=== PATIENT | female | born 1935 | race Caucasian/White ===

== ENCOUNTER → 2018-05-13 | Outpatient (REF) | payer MEDICARE, BC, OTHER | LOC: M LAB REF 16:58 | DX: R30.0 Dysuria (principal) | CPT/HCPCS: 87186 ==

== ENCOUNTER → 2018-08-31 | Outpatient (CLI) | payer MEDICARE, OTHER, BC ==
[~2018-08-31] MED LIST: CRES5TAB PO; DICL100T3 PO; METO1TAB32 PO; NYST1POW9 TOP; PRED5TA PO; VAGI10TA PV
[2018-08-31 17:27] LABS: BASO % 0.1 % (0.0-1.0); EOS # 0.1 10^3/uL (0.0-0.50); EOS % 0.4 % (0.0-3.0); HEMATOCRIT 39.3 % (36.0-47.0); HEMOGLOBIN 12.5 g/dl (12.0-15.5); LYMPH # 1.3 10^3/uL (1.5-4.5); LYMPH % 9.3 % (24.0-44.0); MEAN CORPUSCULAR HEMOGLOBIN 31.1 pg (27.0-33.0); MEAN CORPUSCULAR HGB CONC 31.8 g/dl (32.0-36.5); MEAN CORPUSCULAR VOLUME 97.8 fl (80.0-96.0); MONO # 0.7 10^3/uL (0.0-0.8); MONO % 5.1 % (0.0-5.0); NEUTROPHILS # 11.6 10^3/uL (1.8-7.7); NEUTROPHILS % 84.4 % (36.0-66.0); PLATELET COUNT, AUTOMATED 486 10^3/uL (150-450); RED BLOOD COUNT 4.02 10^6/uL (4.00-5.40); WHITE BLOOD COUNT 13.8 10^3/uL (4.0-10.0)
[2018-08-31 17:31] LABS: BLOOD UREA NITROGEN 23 MG/DL (7-18); CALCIUM LEVEL 9.3 MG/DL (8.8-10.2); CARBON DIOXIDE LEVEL 25 MEQ/L (21-32); CHLORIDE LEVEL 109 MEQ/L (98-107); CREATININE FOR GFR 0.89 MG/DL (0.55-1.30); GLOMERULAR FILTRATION RATE > 60.0 (>32); GLUCOSE, FASTING 115 MG/DL (70-100); POTASSIUM SERUM 4.8 MEQ/L (3.5-5.1); SODIUM LEVEL 143 MEQ/L (136-145)
[2018-08-31 17:32] LABS: ALBUMIN 3.9 GM/DL (3.2-5.2); ALT/SGPT 25 U/L (12-78); BILIRUBIN,TOTAL 0.3 MG/DL (0.2-1.0); IMMUNOGLOBULIN G 736 MG/DL (681-1648); IMMUNOGLOBULIN M 88.8 MG/DL (40-230); TOTAL PROTEIN 7.1 GM/DL (6.4-8.2)
[2018-08-31 19:18] LABS: ERYTHROCYTE SEDIMENTATION RATE 47 mm/hr (0-30)
== END ==
LOC: M WUC 13:29
PROVIDERS: ATTEND Internal Medicine Infectious Disease
DX: A02.9 Salmonella infection, unspecified (principal)
CPT/HCPCS: 36415; 80053; 82784; 85025; 85652; 86140; G0463

== ENCOUNTER → 2018-09-18 | Outpatient (REF) | payer MEDICARE, OTHER ==
[~2018-09-18] MED LIST changes: -DICL100T3 PO; +DICL100T89 PO
[2018-09-18 15:28] LABS: BASO % 0.1 % (0.0-1.0); EOS % 0.3 % (0.0-3.0); HEMATOCRIT 38.4 % (36.0-47.0); HEMOGLOBIN 12.2 g/dl (12.0-15.5); LYMPH # 1.4 10^3/uL (1.5-4.5); LYMPH % 10.4 % (24.0-44.0); MEAN CORPUSCULAR HEMOGLOBIN 30.7 pg (27.0-33.0); MEAN CORPUSCULAR HGB CONC 31.8 g/dl (32.0-36.5); MEAN CORPUSCULAR VOLUME 96.5 fl (80.0-96.0); MONO # 0.7 10^3/uL (0.0-0.8); MONO % 4.9 % (0.0-5.0); NEUTROPHILS # 11.3 10^3/uL (1.8-7.7); PLATELET COUNT, AUTOMATED 503 10^3/uL (150-450); RED BLOOD COUNT 3.98 10^6/uL (4.00-5.40); WHITE BLOOD COUNT 13.4 10^3/uL (4.0-10.0)
[2018-09-18 15:29] LABS: APPEARANCE, URINE CLOUDY (CLEAR); BACTERIA, URINE AUTO 2+ (NEGATIVE); BILIRUBIN, URINE AUTO NEGATIVE (NEGATIVE); BLOOD, URINE BLOOD 3+ (NEGATIVE); COLOR, URINE YELLOW (YELLOW); GLUCOSE, URINE (UA) AUTO NEGATIVE (NEGATIVE); KETONE, URINE AUTO NEGATIVE (NEGATIVE); LEUKOCYTE ESTERASE, URINE AUTO 3+ (NEGATIVE); MUCUS, URINE SMALL (NEGATIVE); NITRITE, URINE AUTO NEGATIVE (NEGATIVE); PROTEIN, URINE AUTO NEGATIVE (NEGATIVE); RBC, URINE AUTO 10 /HPF (0-3); SPECIFIC GRAVITY URINE AUTO 1.009 (1.002-1.035); SQUAMOUS EPITHELIAL CELL UR AU 15 /HPF (0-6); UROBILINOGEN, URINE AUTO 0.2 mg/dL (0.0-2.0); WBC, URINE AUTO 5 /HPF (0-3)
[2018-09-18 15:54] LABS: ALBUMIN 3.8 GM/DL (3.2-5.2); ALT/SGPT 20 U/L (12-78); BILIRUBIN,TOTAL 0.4 MG/DL (0.2-1.0); BLOOD UREA NITROGEN 20 MG/DL (7-18); C REACTIVE PROTEIN QUANTITATIV 0.54 MG/DL (0.00-0.30); CALCIUM LEVEL 9.6 MG/DL (8.8-10.2); CARBON DIOXIDE LEVEL 24 MEQ/L (21-32); CHLORIDE LEVEL 109 MEQ/L (98-107); CREATININE FOR GFR 0.84 MG/DL (0.55-1.30); GLOMERULAR FILTRATION RATE > 60.0 (>32); GLUCOSE, FASTING 106 MG/DL (70-100); SODIUM LEVEL 141 MEQ/L (136-145)
[2018-09-18 16:12] LABS: ERYTHROCYTE SEDIMENTATION RATE 42 mm/hr (0-30)
== END ==
LOC: M SFHCPLAZ 13:58
PROVIDERS: ATTEND Internal Medicine Infectious Disease
DX: N39.0 Urinary tract infection, site not specified (principal); M35.3 Polymyalgia rheumatica; A02.9 Salmonella infection, unspecified
CPT/HCPCS: 36415; 80053; 81001; 85025; 85652; 86140; 87088; 87186; G0463

== ENCOUNTER → 2020-06-03 | Outpatient (CLI) | payer SELFPAY | LOC: M LABSMTC 10:38 | PROVIDERS: ATTEND Pediatrics | DX: Z11.59 Encounter for screening for other viral diseases (principal) ==

== ENCOUNTER → 2020-11-25 | Outpatient (CLI) | payer MEDICARE, OTHER ==
[2020-11-25 17:10] LABS: BASO % 0.3 % (0.0-1.0); EOS % 0.2 % (0.0-3.0); HEMOGLOBIN 11.4 g/dl (12.0-15.5); LYMPH # 1.5 10^3/uL (1.5-5.0); LYMPH % 10.6 % (24.0-44.0); MEAN CORPUSCULAR HEMOGLOBIN 30.6 pg (27.0-33.0); MEAN CORPUSCULAR HGB CONC 30.8 g/dl (32.0-36.5); MEAN CORPUSCULAR VOLUME 99.2 fl (80.0-96.0); MONO # 0.6 10^3/uL (0.0-0.8); MONO % 4.4 % (2.0-8.0); NEUTROPHILS # 11.9 10^3/uL (1.5-8.5); PLATELET COUNT, AUTOMATED 495 10^3/uL (150-450); RED BLOOD COUNT 3.73 10^6/uL (4.00-5.40); WHITE BLOOD COUNT 14.2 10^3/uL (4.0-10.0)
[2020-11-25 17:34] LABS: ALBUMIN 3.8 GM/DL (3.2-5.2); ALT/SGPT 16 U/L (12-78); BILIRUBIN,TOTAL 0.4 MG/DL (0.2-1.0); BLOOD UREA NITROGEN 20 MG/DL (7-18); C REACTIVE PROTEIN QUANTITATIV 0.55 MG/DL (0.00-0.30); CALCIUM LEVEL 9.6 MG/DL (8.8-10.2); CARBON DIOXIDE LEVEL 23 MEQ/L (21-32); CHLORIDE LEVEL 111 MEQ/L (98-107); CREATININE FOR GFR 0.89 MG/DL (0.55-1.30); GLOMERULAR FILTRATION RATE > 60.0 (>32); GLUCOSE, FASTING 114 MG/DL (70-100); POTASSIUM SERUM 4.7 MEQ/L (3.5-5.1); SODIUM LEVEL 141 MEQ/L (136-145)
[2020-11-25 17:45] LABS: ERYTHROCYTE SEDIMENTATION RATE 31 mm/hr (0-30)
== END ==
LOC: M WUC 14:43
PROVIDERS: ATTEND Internal Medicine Rheumatology
DX: M35.3 Polymyalgia rheumatica (principal)

== ENCOUNTER → 2021-02-26 | Outpatient (CLI) | payer MEDICARE, OTHER ==
[2021-02-26 11:43] LABS: BASO % 0.4 % (0.0-1.0); EOS # 0.3 10^3/uL (0.0-0.5); EOS % 3.1 % (0.0-3.0); HEMATOCRIT 36.4 % (36.0-47.0); HEMOGLOBIN 11.6 g/dl (12.0-15.5); LYMPH # 3.4 10^3/uL (1.5-5.0); LYMPH % 31.4 % (24.0-44.0); MEAN CORPUSCULAR HEMOGLOBIN 30.5 pg (27.0-33.0); MEAN CORPUSCULAR HGB CONC 31.9 g/dl (32.0-36.5); MEAN CORPUSCULAR VOLUME 95.8 fl (80.0-96.0); MONO # 1.3 10^3/uL (0.0-0.8); MONO % 11.5 % (2.0-8.0); NEUTROPHILS # 5.8 10^3/uL (1.5-8.5); NEUTROPHILS % 53.1 % (36.0-66.0); PLATELET COUNT, AUTOMATED 442 10^3/uL (150-450); WHITE BLOOD COUNT 10.8 10^3/uL (4.0-10.0)
[2021-02-26 12:08] LABS: ALBUMIN 3.3 GM/DL (3.2-5.2); ALT/SGPT 15 U/L (12-78); BILIRUBIN,TOTAL 0.4 MG/DL (0.2-1.0); BLOOD UREA NITROGEN 23 MG/DL (7-18); C REACTIVE PROTEIN QUANTITATIV 0.56 MG/DL (0.00-0.30); CALCIUM LEVEL 9.1 MG/DL (8.8-10.2); CARBON DIOXIDE LEVEL 26 MEQ/L (21-32); CHLORIDE LEVEL 112 MEQ/L (98-107); CREATININE FOR GFR 1.05 MG/DL (0.55-1.30); GLOMERULAR FILTRATION RATE 53.3 (>32); GLUCOSE, FASTING 83 MG/DL (70-100); POTASSIUM SERUM 4.7 MEQ/L (3.5-5.1); SODIUM LEVEL 142 MEQ/L (136-145); TOTAL PROTEIN 6.5 GM/DL (6.4-8.2)
[2021-02-26 12:39] LABS: ERYTHROCYTE SEDIMENTATION RATE 49 mm/hr (0-30)
[2021-03-03 08:45] LABS: ALBUMIN 3.66 GM/DL (3.29-5.55); ALBUMIN % 56.3 % (55.8-66.1); ALPHA-1-GLOBULIN % 5.8 % (2.9-4.9); ALPHA-1-GLOBULINS 0.38 GM/DL (0.17-0.41); ALPHA-2-GLOBULINS 1.01 GM/DL (0.42-0.99); ALPHA-2-GLOBULINS % 15.5 % (7.1-11.8); BETA-1-GLOBULINS 0.46 GM/DL (0.28-0.60); BETA-2-GLOBULINS 0.36 GM/DL (0.19-0.55); BETA-2-GLOBULINS % 5.5 % (3.2-6.5); GAMMA GLOBULIN % 9.9 % (11.1-18.8); GAMMA GLOBULINS 0.64 GM/DL (0.65-1.58)
== END ==
LOC: M WUC 09:19
PROVIDERS: ATTEND Internal Medicine Rheumatology
DX: M35.3 Polymyalgia rheumatica (principal); R70.0 Elevated erythrocyte sedimentation rate; M25.50 Pain in unspecified joint

== ENCOUNTER 2021-09-02 18:40 | Inpatient (IN) | payer MEDICARE, BC, OTHER ==
[~2021-09-02] VITALS: Ht 152.4 cm; Wt 66.9 kg
[2021-09-02 20:08] LABS: BASO % 0.3 % (0.0-1.0); EOS # 0.1 10^3/uL (0.0-0.5); HEMATOCRIT 26.3 % (36.0-47.0); HEMOGLOBIN 8.5 g/dl (12.0-15.5); LYMPH # 1.2 10^3/uL (1.5-5.0); LYMPH % 10.2 % (24.0-44.0); MEAN CORPUSCULAR HEMOGLOBIN 31.3 pg (27.0-33.0); MEAN CORPUSCULAR HGB CONC 32.3 g/dl (32.0-36.5); MEAN CORPUSCULAR VOLUME 96.7 fl (80.0-96.0); MONO # 1.2 10^3/uL (0.0-0.8); MONO % 9.8 % (2.0-8.0); NEUTROPHILS # 9.2 10^3/uL (1.5-8.5); NEUTROPHILS % 77.7 % (36.0-66.0); PLATELET COUNT, AUTOMATED 390 10^3/uL (150-450); RED BLOOD COUNT 2.72 10^6/uL (4.00-5.40); WHITE BLOOD COUNT 11.9 10^3/uL (4.0-10.0)
[2021-09-02] MEDS ORDERED: PANTOPRAZOLE 40MG VIAL (C9113 PER 1) IV ONE (20:10)
[2021-09-02 20:14] LABS: ALBUMIN 2.3 GM/DL (3.2-5.2); ALT/SGPT 32 U/L (12-78); BILIRUBIN,DIRECT < 0.1 MG/DL (0.0-0.2); BILIRUBIN,TOTAL 0.2 MG/DL (0.2-1.0); BLOOD UREA NITROGEN 12 MG/DL (7-18); CARBON DIOXIDE LEVEL 23 MEQ/L (21-32); CHLORIDE LEVEL 113 MEQ/L (98-107); CREATININE FOR GFR 0.56 MG/DL (0.55-1.30); GLOMERULAR FILTRATION RATE > 60.0 (>32); GLUCOSE, FASTING 113 MG/DL (70-100); LIPASE 130 U/L (73-393); POTASSIUM SERUM 3.3 MEQ/L (3.5-5.1); SODIUM LEVEL 145 MEQ/L (136-145); TOTAL PROTEIN 5.7 GM/DL (6.4-8.2)
[2021-09-02 20:28] LABS: INR 0.95; PROTHROMBIN TIME 13.1 SECONDS (12.7-14.5)
[2021-09-02 20:32] LABS: PARTIAL THROMBOPLASTIN TIME 24.8 SECONDS (25.9-37.0)
[2021-09-02 20:59] LABS: RSV AMPLIFICATION NEGATIVE (NEGATIVE)
[2021-09-02] MEDS ORDERED: NS 1,000 ML IV SCH (22:45)
[2021-09-02 23:37] LABS: HEMATOCRIT 17.8 % (36.0-47.0); HEMOGLOBIN 5.5 g/dl (12.0-15.5)
[2021-09-02 23:48] VITALS: BP 128/78
[2021-09-03] MEDS ORDERED: TOPR25TA PO (00:06)
[2021-09-03] MEDS ORDERED: ENSU1LIQ50 PO (00:06)
[2021-09-03] MEDS ORDERED: MELA3TAB30 PO (00:06)
[2021-09-03] MEDS ORDERED: ACET-907 PO (00:06)
[2021-09-03] MEDS ORDERED: SALI0.6530 (00:06)
[2021-09-03] MEDS ORDERED: ASPI-161 PO (00:06)
[2021-09-03] MEDS ORDERED: MECL-86 PO (00:06)
[2021-09-03] MEDS ORDERED: HYDR-643 PO (00:06)
[2021-09-03] MEDS ORDERED: NASA1SPR (00:06)
[2021-09-03] MEDS ORDERED: ESTR1TAB3 PO (00:06)
[2021-09-03] MEDS ORDERED: VITA500T41 PO (00:06)
[2021-09-03] MEDS ORDERED: MELA1TAB9 PO (00:06)
[2021-09-03] MEDS ORDERED: FERR32TA PO (00:06)
[2021-09-03] MEDS ORDERED: PANT40TA29 PO (00:06)
[2021-09-03] MEDS ORDERED: BUSP5TA PO (00:06)
[2021-09-03] MEDS ORDERED: HOME MED LIST COMPLETE! XX SCH (00:10)
[2021-09-03 00:23] LABS: HEMATOCRIT 26.7 % (36.0-47.0); HEMOGLOBIN 8.8 g/dl (12.0-15.5)
[2021-09-03] MEDS: KCL 10MEQ/100ML SWI (KRUN) 10 MEQ in IV 1 EA IV SCH ×2 (00:37→01:57)
[2021-09-03] MEDS: SUCRALFATE 1 GM TAB PO SCH ×4 (00:55→21:30)
[2021-09-03 06:00] VITALS: BP 127/73
[2021-09-03 06:21] LABS: HEMATOCRIT 24.7 % (36.0-47.0)
[2021-09-03 06:47] LABS: ALBUMIN 2.1 GM/DL (3.2-5.2); ALT/SGPT 28 U/L (12-78); BILIRUBIN,TOTAL 0.3 MG/DL (0.2-1.0); BLOOD UREA NITROGEN 11 MG/DL (7-18); CARBON DIOXIDE LEVEL 24 MEQ/L (21-32); CHLORIDE LEVEL 114 MEQ/L (98-107); GLOMERULAR FILTRATION RATE > 60.0 (>32); GLUCOSE, FASTING 92 MG/DL (70-100); MAGNESIUM LEVEL 1.3 MG/DL (1.8-2.4); POTASSIUM SERUM 3.5 MEQ/L (3.5-5.1); SODIUM LEVEL 144 MEQ/L (136-145); TOTAL PROTEIN 5.5 GM/DL (6.4-8.2)
[2021-09-03] MEDS ORDERED: SODIUM CHLORIDE NASAL 0.65% SPRAY BTL (OCEAN) PRN (08:05)
[2021-09-03] MEDS ORDERED: MECLIZINE 25 MG TABLET PO PRN (08:05)
[2021-09-03] MEDS: busPIRone 5 MG TAB PO SCH ×3 (09:00→20:15)
[2021-09-03] MEDS: PANTOPRAZOLE 40MG VIAL (C9113 PER 1) IV SCH ×2 (09:07→20:15)
[2021-09-03] MEDS: predniSONE 5 MG TAB PO SCH (09:09)
[2021-09-03] MEDS: CYANOCOBALAMIN 500 MCG TAB PO SCH (09:09)
[2021-09-03] MEDS: estradioL 1 MG TAB PO SCH (09:09)
[2021-09-03] MEDS: FERROUS GLUCONATE 324 MG TAB PO SCH (09:09)
[2021-09-03] MEDS: METOPROLOL SUCC *XL* 25MG TAB (TopROL *XL*) PO SCH (09:10)
[2021-09-03 09:27] LABS: ALBUMIN 2.2 GM/DL (3.2-5.2); ALT/SGPT 28 U/L (12-78); BILIRUBIN,TOTAL 0.3 MG/DL (0.2-1.0); BLOOD UREA NITROGEN 10 MG/DL (7-18); CALCIUM LEVEL 9.1 MG/DL (8.8-10.2); CARBON DIOXIDE LEVEL 24 MEQ/L (21-32); CHLORIDE LEVEL 114 MEQ/L (98-107); CREATININE FOR GFR 0.38 MG/DL (0.55-1.30); GLOMERULAR FILTRATION RATE > 60.0 (>32); GLUCOSE, FASTING 88 MG/DL (70-100); POTASSIUM SERUM 3.3 MEQ/L (3.5-5.1); SODIUM LEVEL 143 MEQ/L (136-145); TOTAL PROTEIN 5.9 GM/DL (6.4-8.2)
[2021-09-03 09:29] LABS: PERCENT SATURATION 37.3 % (13.2-45.0)
[2021-09-03] MEDS ORDERED: POTASSIUM CHLORIDE 10MEQ SR TABLET PO ONE (13:20)
[2021-09-03 14:00] VITALS: BP 131/72
[2021-09-03] MEDS: BACTRIM 160MG/800MG DS TAB PO SCH ×2 (14:43→20:15)
[2021-09-03 18:22] LABS: HEMATOCRIT 25.1 % (36.0-47.0); HEMOGLOBIN 8.4 g/dl (12.0-15.5); MEAN CORPUSCULAR HEMOGLOBIN 31.9 pg (27.0-33.0); MEAN CORPUSCULAR HGB CONC 33.5 g/dl (32.0-36.5); MEAN CORPUSCULAR VOLUME 95.4 fl (80.0-96.0); PLATELET COUNT, AUTOMATED 443 10^3/uL (150-450); RED BLOOD COUNT 2.63 10^6/uL (4.00-5.40); WHITE BLOOD COUNT 14.1 10^3/uL (4.0-10.0)
[2021-09-03] MEDS: hydrOXYzine 10 MG TAB PO SCH (20:15)
[2021-09-03] MEDS ORDERED: ROSUVASTATIN 10 MG TAB (CRESTOR) PO SCH (21:00)
[2021-09-03] MEDS: ACETAMINOPHEN TAB 650MG DOSE (2X325MG) PO PRN (21:30)
[2021-09-03 22:00] VITALS: BP 122/74
[2021-09-04 06:00] VITALS: BP 110/61
[2021-09-04] MEDS: SUCRALFATE 1 GM TAB PO SCH ×3 (06:28→22:17)
[2021-09-04 06:32] LABS: HEMOGLOBIN 7.7 g/dl (12.0-15.5); MEAN CORPUSCULAR HEMOGLOBIN 31.3 pg (27.0-33.0); MEAN CORPUSCULAR HGB CONC 32.1 g/dl (32.0-36.5); MEAN CORPUSCULAR VOLUME 97.6 fl (80.0-96.0); PLATELET COUNT, AUTOMATED 413 10^3/uL (150-450); RED BLOOD COUNT 2.46 10^6/uL (4.00-5.40); WHITE BLOOD COUNT 10.5 10^3/uL (4.0-10.0)
[2021-09-04] MEDS: busPIRone 5 MG TAB PO SCH ×3 (09:00→22:17)
[2021-09-04] MEDS: BACTRIM 160MG/800MG DS TAB PO SCH (09:17)
[2021-09-04] MEDS: estradioL 1 MG TAB PO SCH (09:17)
[2021-09-04] MEDS: FERROUS GLUCONATE 324 MG TAB PO SCH (09:17)
[2021-09-04] MEDS: CYANOCOBALAMIN 500 MCG TAB PO SCH (09:18)
[2021-09-04] MEDS: predniSONE 5 MG TAB PO SCH (09:18)
[2021-09-04] MEDS: PANTOPRAZOLE 40MG VIAL (C9113 PER 1) IV SCH ×2 (09:18→22:17)
[2021-09-04] MEDS: METOPROLOL SUCC *XL* 25MG TAB (TopROL *XL*) PO SCH (09:18)
[2021-09-04] MEDS: ACETAMINOPHEN TAB 650MG DOSE (2X325MG) PO PRN ×2 (09:49→22:18)
[2021-09-04 09:51] LABS: ALBUMIN 2.2 GM/DL (3.2-5.2); ALT/SGPT 25 U/L (12-78); BILIRUBIN,TOTAL 0.3 MG/DL (0.2-1.0); BLOOD UREA NITROGEN 6 MG/DL (7-18); CALCIUM LEVEL 9.2 MG/DL (8.8-10.2); CARBON DIOXIDE LEVEL 25 MEQ/L (21-32); CHLORIDE LEVEL 113 MEQ/L (98-107); CREATININE FOR GFR 0.45 MG/DL (0.55-1.30); GLOMERULAR FILTRATION RATE > 60.0 (>32); GLUCOSE, FASTING 81 MG/DL (70-100); POTASSIUM SERUM 4.4 MEQ/L (3.5-5.1); SODIUM LEVEL 144 MEQ/L (136-145); TOTAL PROTEIN 5.3 GM/DL (6.4-8.2)
[2021-09-04] MEDS: NYSTATIN 100,000 UNITS/GM TOPICAL PWD 15 GM TOP SCH ×2 (13:13→22:18)
[2021-09-04 14:00] VITALS: BP 151/79
[2021-09-04 18:37] LABS: HEMATOCRIT 28.1 % (36.0-47.0); MEAN CORPUSCULAR HEMOGLOBIN 31.6 pg (27.0-33.0); MEAN CORPUSCULAR VOLUME 98.6 fl (80.0-96.0); PLATELET COUNT, AUTOMATED 486 10^3/uL (150-450); RED BLOOD COUNT 2.85 10^6/uL (4.00-5.40); WHITE BLOOD COUNT 14.6 10^3/uL (4.0-10.0)
[2021-09-04] MEDS ORDERED: VANCOMYCIN HCL 750 MG, VIAL MATE ADAPTER 1 EACH in NS 250 ML IV ONE (20:00)
[2021-09-04] MEDS ORDERED: PROHANCE 279.3MG/ML 15ML VIAL As Ordered ONE (20:51)
[2021-09-04] MEDS ORDERED: VANCOMYCIN HCL 500 MG in D5W MINI-BAG PLUS 100 ML IV ONE (21:00)
[2021-09-04 22:00] VITALS: BP 146/81
[2021-09-04] MEDS: hydrOXYzine 10 MG TAB PO SCH (22:17)
[2021-09-05] MEDS: CIPROFLOXACIN 400 MG in IV 1 EA IV SCH ×3 (01:17→22:05)
[2021-09-05] MEDS: SUCRALFATE 1 GM TAB PO SCH ×3 (05:33→22:05)
[2021-09-05 06:00] VITALS: BP 134/64
[2021-09-05 07:12] LABS: HEMATOCRIT 24.6 % (36.0-47.0); MEAN CORPUSCULAR HEMOGLOBIN 31.7 pg (27.0-33.0); MEAN CORPUSCULAR HGB CONC 32.5 g/dl (32.0-36.5); MEAN CORPUSCULAR VOLUME 97.6 fl (80.0-96.0); PLATELET COUNT, AUTOMATED 422 10^3/uL (150-450); RED BLOOD COUNT 2.52 10^6/uL (4.00-5.40); WHITE BLOOD COUNT 9.6 10^3/uL (4.0-10.0)
[2021-09-05 07:33] LABS: ALBUMIN 2.3 GM/DL (3.2-5.2); ALT/SGPT 27 U/L (12-78); BILIRUBIN,TOTAL 0.3 MG/DL (0.2-1.0); BLOOD UREA NITROGEN 5 MG/DL (7-18); CALCIUM LEVEL 9.2 MG/DL (8.8-10.2); CARBON DIOXIDE LEVEL 26 MEQ/L (21-32); CHLORIDE LEVEL 109 MEQ/L (98-107); GLOMERULAR FILTRATION RATE > 60.0 (>32); GLUCOSE, FASTING 83 MG/DL (70-100); POTASSIUM SERUM 4.2 MEQ/L (3.5-5.1); SODIUM LEVEL 139 MEQ/L (136-145); TOTAL PROTEIN 5.3 GM/DL (6.4-8.2)
[2021-09-05] MEDS: busPIRone 5 MG TAB PO SCH ×3 (09:00→21:10)
[2021-09-05 09:45] VITALS: BP 128/64
[2021-09-05] MEDS: predniSONE 5 MG TAB PO SCH (09:45)
[2021-09-05] MEDS: CYANOCOBALAMIN 500 MCG TAB PO SCH (09:45)
[2021-09-05] MEDS: PANTOPRAZOLE 40MG VIAL (C9113 PER 1) IV SCH ×2 (09:46→21:10)
[2021-09-05] MEDS: LACTOBACILLUS ACIDOPHILUS CAP (BACID) PO SCH ×2 (09:46→18:18)
[2021-09-05] MEDS: FERROUS GLUCONATE 324 MG TAB PO SCH (09:46)
[2021-09-05] MEDS: estradioL 1 MG TAB PO SCH (09:46)
[2021-09-05] MEDS: METOPROLOL SUCC *XL* 25MG TAB (TopROL *XL*) PO SCH (09:46)
[2021-09-05] MEDS: VANCOMYCIN HCL 1,000 MG, VIAL MATE ADAPTER 1 EACH in NS 250 ML IV SCH ×2 (09:46→19:33)
[2021-09-05] MEDS: NYSTATIN 100,000 UNITS/GM TOPICAL PWD 15 GM TOP SCH ×2 (09:57→21:11)
[2021-09-05 14:00] VITALS: BP 128/86
[2021-09-05 21:00] VITALS: BP 129/80
[2021-09-05] MEDS: hydrOXYzine 10 MG TAB PO SCH (21:10)
[2021-09-05] MEDS: ACETAMINOPHEN TAB 650MG DOSE (2X325MG) PO PRN (22:07)
[2021-09-06 06:00] VITALS: BP 128/77
[2021-09-06 06:33] LABS: HEMATOCRIT 27.2 % (36.0-47.0); HEMOGLOBIN 8.6 g/dl (12.0-15.5); MEAN CORPUSCULAR HGB CONC 31.6 g/dl (32.0-36.5); MEAN CORPUSCULAR VOLUME 98.2 fl (80.0-96.0); PLATELET COUNT, AUTOMATED 490 10^3/uL (150-450); RED BLOOD COUNT 2.77 10^6/uL (4.00-5.40); WHITE BLOOD COUNT 10.4 10^3/uL (4.0-10.0)
[2021-09-06] MEDS: SUCRALFATE 1 GM TAB PO SCH (06:37)
[2021-09-06 07:03] LABS: ALBUMIN 2.4 GM/DL (3.2-5.2); ALT/SGPT 29 U/L (12-78); BILIRUBIN,TOTAL 0.3 MG/DL (0.2-1.0); BLOOD UREA NITROGEN 6 MG/DL (7-18); CALCIUM LEVEL 9.2 MG/DL (8.8-10.2); CARBON DIOXIDE LEVEL 24 MEQ/L (21-32); CHLORIDE LEVEL 111 MEQ/L (98-107); CREATININE FOR GFR 0.63 MG/DL (0.55-1.30); GLOMERULAR FILTRATION RATE > 60.0 (>32); GLUCOSE, FASTING 90 MG/DL (70-100); POTASSIUM SERUM 3.6 MEQ/L (3.5-5.1); SODIUM LEVEL 143 MEQ/L (136-145); TOTAL PROTEIN 6.2 GM/DL (6.4-8.2)
[2021-09-06] MEDS ORDERED: FUROSEMIDE 40MG/4ML VIAL (J1940) IV ONE (07:50)
[2021-09-06] MEDS ORDERED: VANCOMYCIN HCL 750 MG, VIAL MATE ADAPTER 1 EACH in NS 250 ML IV SCH (08:00)
[2021-09-06 08:23] LABS: C REACTIVE PROTEIN QUANTITATIV 3.63 MG/DL (0.00-0.30)
[2021-09-06 08:33] LABS: ERYTHROCYTE SEDIMENTATION RATE 60 mm/hr (0-30)
[2021-09-06] MEDS: predniSONE 5 MG TAB PO SCH (09:32)
[2021-09-06] MEDS: LACTOBACILLUS ACIDOPHILUS CAP (BACID) PO SCH (09:32)
[2021-09-06] MEDS: PANTOPRAZOLE 40MG VIAL (C9113 PER 1) IV SCH (09:32)
[2021-09-06 09:33] VITALS: BP 128/77
[2021-09-06] MEDS: FERROUS GLUCONATE 324 MG TAB PO SCH (09:33)
[2021-09-06] MEDS: CYANOCOBALAMIN 500 MCG TAB PO SCH (09:33)
[2021-09-06] MEDS: METOPROLOL SUCC *XL* 25MG TAB (TopROL *XL*) PO SCH (09:33)
[2021-09-06] MEDS: busPIRone 5 MG TAB PO SCH (09:35)
[2021-09-06] MEDS: estradioL 1 MG TAB PO SCH (09:35)
[2021-09-06] MEDS: NYSTATIN 100,000 UNITS/GM TOPICAL PWD 15 GM TOP SCH (09:36)
[2021-09-06] MEDS: CIPROFLOXACIN 400 MG in IV 1 EA IV SCH (11:10)
[2021-09-06] MEDS ORDERED: CIPR1.5I IV (12:23)
[2021-09-06] MEDS ORDERED: RISATAB3 PO (12:23)
[2021-09-06] MEDS ORDERED: PANT40IN4 IV (12:23)
[2021-09-06] MEDS ORDERED: SUCR1TA PO (12:23)
[2021-09-06] MEDS ORDERED: NYST10006 TOP (12:23)
[2021-09-06] MEDS ORDERED: VANC750I IV (12:23)
[2021-09-06] MEDS: ACETAMINOPHEN TAB 650MG DOSE (2X325MG) PO PRN (13:00)
== END 2021-09-06 13:25 | disposition short-term general hospital (02) | DRG 377 ==
LOC: EDBD 18:40 → M ED 18:40 → M ED INP 21:52 → M MSPAV 23:50
PROVIDERS: ADMIT Family Medicine; ATTEND Internal Medicine
DX: K57.21 Diverticulitis of large intestine with perforation and abscess with bleeding (principal); A41.9 Sepsis, unspecified organism; G06.2 Extradural and subdural abscess, unspecified; N39.0 Urinary tract infection, site not specified; J90 Pleural effusion, not elsewhere classified; M86.9 Osteomyelitis, unspecified; I10 Essential (primary) hypertension; M35.3 Polymyalgia rheumatica; M19.90 Unspecified osteoarthritis, unspecified site; R09.02 Hypoxemia; D50.9 Iron deficiency anemia, unspecified; B37.2 Candidiasis of skin and nail; Z66 Do not resuscitate; E78.5 Hyperlipidemia, unspecified; M48.061 Spinal stenosis, lumbar region without neurogenic claudication; N89.8 Other specified noninflammatory disorders of vagina; M46.47 Discitis, unspecified, lumbosacral region; Z85.3 Personal history of malignant neoplasm of breast; Z93.3 Colostomy status; Z96.653 Presence of artificial knee joint, bilateral; Z90.13 Acquired absence of bilateral breasts and nipples; Z90.710 Acquired absence of both cervix and uterus; Z98.49 Cataract extraction status, unspecified eye; Z20.822 Contact with and (suspected) exposure to COVID-19; Z79.52 Long term (current) use of systemic steroids; Z79.899 Other long term (current) drug therapy; Z88.1 Allergy status to other antibiotic agents; Z88.5 Allergy status to narcotic agent; Z88.8 Allergy status to other drugs, medicaments and biological substances

== ENCOUNTER → 2021-09-21 | Outpatient (REF) | payer BC, MEDICARE, OTHER ==
[~2021-09-21] MED LIST changes: +ACET-907 PO; +ASPI-161 PO; +BUSP5TA PO; +CIPR1.5I IV; +ENSU1LIQ50 PO; +ESTR1TAB3 PO; +FERR32TA PO; +HYDR-643 PO; +MECL-86 PO; +MELA1TAB9 PO; +MELA3TAB30 PO; +NASA1SPR; +NYST10006 TOP; +PANT40IN4 IV; +PANT40TA29 PO; +RISATAB3 PO; +SALI0.6530; +SUCR1TA PO; +TOPR25TA PO; +VANC750I IV; +VITA500T41 PO
[2021-09-21 13:06] LABS: HEMATOCRIT 31.9 % (36.0-47.0); MEAN CORPUSCULAR HEMOGLOBIN 30.6 pg (27.0-33.0); MEAN CORPUSCULAR HGB CONC 31.3 g/dl (32.0-36.5); MEAN CORPUSCULAR VOLUME 97.6 fl (80.0-96.0); PLATELET COUNT, AUTOMATED 526 10^3/uL (150-450); RED BLOOD COUNT 3.27 10^6/uL (4.00-5.40); WHITE BLOOD COUNT 14.8 10^3/uL (4.0-10.0)
[2021-09-21 13:32] LABS: BLOOD UREA NITROGEN 15 MG/DL (7-18); C REACTIVE PROTEIN QUANTITATIV 3.15 MG/DL (0.00-0.30); CALCIUM LEVEL 10.4 MG/DL (8.8-10.2); CARBON DIOXIDE LEVEL 20 MEQ/L (21-32); CHLORIDE LEVEL 114 MEQ/L (98-107); CREATININE FOR GFR 0.54 MG/DL (0.55-1.30); GLOMERULAR FILTRATION RATE > 60.0 (>32); GLUCOSE, FASTING 105 MG/DL (70-100); POTASSIUM SERUM 3.7 MEQ/L (3.5-5.1); SODIUM LEVEL 143 MEQ/L (136-145)
[2021-09-21 13:47] LABS: ERYTHROCYTE SEDIMENTATION RATE 85 mm/hr (0-30)
[2021-09-21 14:49] LABS: VANCOMYCIN LEVEL TROUGH 27.2 UG/ML (10.0-20.0)
== END ==
PROVIDERS: ATTEND Internal Medicine
DX: M46.40 Discitis, unspecified, site unspecified (principal)

== ENCOUNTER → 2021-10-05 | Outpatient (REF) | PROVIDERS: ATTEND Physician Assistant | DX: A41.9 Sepsis, unspecified organism (principal); Z53.9 Procedure and treatment not carried out, unspecified reason ==

== ENCOUNTER → 2021-10-07 | Outpatient (REF) | PROVIDERS: ATTEND Physician Assistant | DX: Z51.81 Encounter for therapeutic drug level monitoring (principal); Z79.2 Long term (current) use of antibiotics ==

== ENCOUNTER → 2021-10-11 | Outpatient (REF) | PROVIDERS: ATTEND Physician Assistant | DX: Z79.899 Other long term (current) drug therapy (principal); Z53.9 Procedure and treatment not carried out, unspecified reason ==

== ENCOUNTER → 2021-10-12 | Outpatient (REF) ==
[2021-10-12 13:52] LABS: HEMATOCRIT 32.9 % (36.0-47.0); HEMOGLOBIN 10.8 g/dl (12.0-15.5); MEAN CORPUSCULAR HEMOGLOBIN 32.3 pg (27.0-33.0); MEAN CORPUSCULAR HGB CONC 32.8 g/dl (32.0-36.5); MEAN CORPUSCULAR VOLUME 98.5 fl (80.0-96.0); PLATELET COUNT, AUTOMATED 525 10^3/uL (150-450); RED BLOOD COUNT 3.34 10^6/uL (4.00-5.40); WHITE BLOOD COUNT 15.7 10^3/uL (4.0-10.0)
[2021-10-12 14:26] LABS: ALBUMIN 3.1 GM/DL (3.2-5.2); ALT/SGPT 26 U/L (12-78); BILIRUBIN,TOTAL 0.3 MG/DL (0.2-1.0); BLOOD UREA NITROGEN 14 MG/DL (7-18); CALCIUM LEVEL 10.9 MG/DL (8.8-10.2); CARBON DIOXIDE LEVEL 13 MEQ/L (21-32); CHLORIDE LEVEL 115 MEQ/L (98-107); GLOMERULAR FILTRATION RATE > 60.0 (>32); GLUCOSE, FASTING 132 MG/DL (70-100); POTASSIUM SERUM 4.5 MEQ/L (3.5-5.1); SODIUM LEVEL 142 MEQ/L (136-145); TOTAL PROTEIN 7.1 GM/DL (6.4-8.2)
== END ==
PROVIDERS: ATTEND Physician Assistant
DX: Z79.899 Other long term (current) drug therapy (principal)

== ENCOUNTER → 2021-10-15 | Outpatient (REF) | PROVIDERS: ATTEND Internal Medicine | DX: M46.40 Discitis, unspecified, site unspecified (principal); Z53.9 Procedure and treatment not carried out, unspecified reason ==

== ENCOUNTER → 2021-10-15 | Outpatient (REF) | PROVIDERS: ATTEND Physician Assistant | DX: Z79.2 Long term (current) use of antibiotics (principal); M46.40 Discitis, unspecified, site unspecified; Z53.9 Procedure and treatment not carried out, unspecified reason ==

== ENCOUNTER → 2021-10-15 | Outpatient (REF) | PROVIDERS: ATTEND Internal Medicine | DX: M46.40 Discitis, unspecified, site unspecified (principal); Z53.9 Procedure and treatment not carried out, unspecified reason ==

== ENCOUNTER → 2021-10-15 | Outpatient (REF) | PROVIDERS: ATTEND Internal Medicine | DX: M46.40 Discitis, unspecified, site unspecified (principal) ==

== ENCOUNTER → 2021-10-16 | Outpatient (REF) ==
[2021-10-16 10:51] LABS: BASO # 0.1 10^3/uL (0.0-0.2); BASO % 0.5 % (0.0-1.0); EOS # 0.8 10^3/uL (0.0-0.5); EOS % 6.9 % (0.0-3.0); HEMATOCRIT 32.5 % (36.0-47.0); HEMOGLOBIN 10.1 g/dl (12.0-15.5); LYMPH # 1.6 10^3/uL (1.5-5.0); LYMPH % 13.2 % (24.0-44.0); MEAN CORPUSCULAR HEMOGLOBIN 31.7 pg (27.0-33.0); MEAN CORPUSCULAR HGB CONC 31.1 g/dl (32.0-36.5); MEAN CORPUSCULAR VOLUME 101.9 fl (80.0-96.0); MONO # 1.1 10^3/uL (0.0-0.8); NEUTROPHILS # 8.5 10^3/uL (1.5-8.5); NEUTROPHILS % 69.7 % (36.0-66.0); PLATELET COUNT, AUTOMATED 444 10^3/uL (150-450); RED BLOOD COUNT 3.19 10^6/uL (4.00-5.40); WHITE BLOOD COUNT 12.2 10^3/uL (4.0-10.0)
[2021-10-16 11:25] LABS: ALBUMIN 2.9 GM/DL (3.2-5.2); ALT/SGPT 24 U/L (12-78); BILIRUBIN,TOTAL 0.3 MG/DL (0.2-1.0); BLOOD UREA NITROGEN 17 MG/DL (7-18); C REACTIVE PROTEIN QUANTITATIV 0.79 MG/DL (0.00-0.30); CALCIUM LEVEL 10.7 MG/DL (8.8-10.2); CARBON DIOXIDE LEVEL 18 MEQ/L (21-32); CHLORIDE LEVEL 116 MEQ/L (98-107); CREATININE FOR GFR 0.71 MG/DL (0.55-1.30); GLOMERULAR FILTRATION RATE > 60.0 (>32); GLUCOSE, FASTING 112 MG/DL (70-100); POTASSIUM SERUM 4.8 MEQ/L (3.5-5.1); SODIUM LEVEL 141 MEQ/L (136-145); TOTAL PROTEIN 6.6 GM/DL (6.4-8.2); VANCOMYCIN LEVEL TROUGH 21.7 UG/ML (10.0-20.0)
== END ==
PROVIDERS: ATTEND Internal Medicine
DX: M46.40 Discitis, unspecified, site unspecified (principal); Z79.2 Long term (current) use of antibiotics

== ENCOUNTER → 2021-10-19 | Outpatient (REF) | PROVIDERS: ATTEND Internal Medicine | DX: M46.40 Discitis, unspecified, site unspecified (principal) ==

== ENCOUNTER → 2021-10-19 | Outpatient (REF) ==
[2021-10-19 14:59] LABS: BASO # 0.1 10^3/uL (0.0-0.2); BASO % 0.4 % (0.0-1.0); EOS # 0.8 10^3/uL (0.0-0.5); EOS % 5.4 % (0.0-3.0); HEMOGLOBIN 10.1 g/dl (12.0-15.5); LYMPH # 1.3 10^3/uL (1.5-5.0); LYMPH % 8.2 % (24.0-44.0); MEAN CORPUSCULAR HEMOGLOBIN 31.9 pg (27.0-33.0); MEAN CORPUSCULAR HGB CONC 31.6 g/dl (32.0-36.5); MEAN CORPUSCULAR VOLUME 100.9 fl (80.0-96.0); MONO # 1.4 10^3/uL (0.0-0.8); MONO % 9.2 % (2.0-8.0); NEUTROPHILS % 76.2 % (36.0-66.0); PLATELET COUNT, AUTOMATED 436 10^3/uL (150-450); RED BLOOD COUNT 3.17 10^6/uL (4.00-5.40); WHITE BLOOD COUNT 15.7 10^3/uL (4.0-10.0)
[2021-10-19 15:17] LABS: ERYTHROCYTE SEDIMENTATION RATE 52 mm/hr (0-30)
[2021-10-19 15:24] LABS: BLOOD UREA NITROGEN 18 MG/DL (7-18); C REACTIVE PROTEIN QUANTITATIV 1.76 MG/DL (0.00-0.30); CALCIUM LEVEL 11.5 MG/DL (8.8-10.2); CARBON DIOXIDE LEVEL 16 MEQ/L (21-32); CHLORIDE LEVEL 116 MEQ/L (98-107); CREATININE FOR GFR 0.67 MG/DL (0.55-1.30); GLOMERULAR FILTRATION RATE > 60.0 (>32); GLUCOSE, FASTING 106 MG/DL (70-100); POTASSIUM SERUM 4.3 MEQ/L (3.5-5.1); SODIUM LEVEL 142 MEQ/L (136-145)
== END ==
PROVIDERS: ATTEND Internal Medicine
DX: M46.40 Discitis, unspecified, site unspecified (principal)

== ENCOUNTER → 2021-10-19 | Outpatient (REF) | PROVIDERS: ATTEND Physician Assistant | DX: Z53.8 Procedure and treatment not carried out for other reasons (principal) ==

== ENCOUNTER → 2021-10-21 | Outpatient (REF) | PROVIDERS: ATTEND Physician Assistant | DX: M46.40 Discitis, unspecified, site unspecified (principal) ==

== ENCOUNTER → 2021-10-21 | Outpatient (REF) | PROVIDERS: ATTEND Internal Medicine | DX: M46.40 Discitis, unspecified, site unspecified (principal) ==

== ENCOUNTER → 2021-10-22 | Outpatient (REF) ==
[2021-10-22 18:52] LABS: BLOOD UREA NITROGEN 17 MG/DL (7-18); CALCIUM LEVEL 10.6 MG/DL (8.8-10.2); CARBON DIOXIDE LEVEL 16 MEQ/L (21-32); CHLORIDE LEVEL 114 MEQ/L (98-107); CREATININE FOR GFR 0.84 MG/DL (0.55-1.30); GLOMERULAR FILTRATION RATE > 60.0 (>32); GLUCOSE, FASTING 95 MG/DL (70-100); POTASSIUM SERUM 4.5 MEQ/L (3.5-5.1); SODIUM LEVEL 143 MEQ/L (136-145)
== END ==
PROVIDERS: ATTEND Physician Assistant
DX: E87.5 Hyperkalemia (principal)

== ENCOUNTER → 2021-10-22 | Outpatient (REF) | PROVIDERS: ATTEND Internal Medicine | DX: M46.40 Discitis, unspecified, site unspecified (principal) ==

== ENCOUNTER → 2021-10-23 | Outpatient (REF) ==
[2021-10-23 14:20] LABS: BLOOD UREA NITROGEN 19 MG/DL (7-18); CALCIUM LEVEL 11.1 MG/DL (8.8-10.2); CARBON DIOXIDE LEVEL 16 MEQ/L (21-32); CHLORIDE LEVEL 119 MEQ/L (98-107); CREATININE FOR GFR 0.74 MG/DL (0.55-1.30); GLOMERULAR FILTRATION RATE > 60.0 (>32); GLUCOSE, FASTING 106 MG/DL (70-100); PHOSPHORUS LEVEL 3.7 MG/DL (2.5-4.9); POTASSIUM SERUM 4.7 MEQ/L (3.5-5.1); SODIUM LEVEL 143 MEQ/L (136-145)
== END ==
PROVIDERS: ATTEND Physician Assistant
DX: Z51.81 Encounter for therapeutic drug level monitoring (principal); Z79.899 Other long term (current) drug therapy

== ENCOUNTER → 2021-10-23 | Outpatient (REF) ==
[2021-10-23 13:32] LABS: HEMATOCRIT 32.2 % (36.0-47.0); HEMOGLOBIN 9.9 g/dl (12.0-15.5); MEAN CORPUSCULAR HEMOGLOBIN 31.5 pg (27.0-33.0); MEAN CORPUSCULAR HGB CONC 30.7 g/dl (32.0-36.5); MEAN CORPUSCULAR VOLUME 102.5 fl (80.0-96.0); PLATELET COUNT, AUTOMATED 463 10^3/uL (150-450); RED BLOOD COUNT 3.14 10^6/uL (4.00-5.40); WHITE BLOOD COUNT 12.8 10^3/uL (4.0-10.0)
[2021-10-23 13:58] LABS: BLOOD UREA NITROGEN 20 MG/DL (7-18); CALCIUM LEVEL 11.1 MG/DL (8.8-10.2); CARBON DIOXIDE LEVEL 15 MEQ/L (21-32); CHLORIDE LEVEL 119 MEQ/L (98-107); CREATININE FOR GFR 0.78 MG/DL (0.55-1.30); GLOMERULAR FILTRATION RATE > 60.0 (>32); GLUCOSE, FASTING 113 MG/DL (70-100); POTASSIUM SERUM 4.8 MEQ/L (3.5-5.1); SODIUM LEVEL 145 MEQ/L (136-145); TOTAL PROTEIN 6.4 GM/DL (6.4-8.2)
[2021-10-27 14:52] LABS: ALBUMIN 3.75 GM/DL (3.29-5.55); ALBUMIN % 58.6 % (55.8-66.1); ALPHA-1-GLOBULIN % 5.4 % (2.9-4.9); ALPHA-1-GLOBULINS 0.35 GM/DL (0.17-0.41); ALPHA-2-GLOBULINS 0.95 GM/DL (0.42-0.99); ALPHA-2-GLOBULINS % 14.9 % (7.1-11.8); BETA-1-GLOBULINS 0.31 GM/DL (0.28-0.60); BETA-1-GLOBULINS % 4.9 % (4.7-7.2); BETA-2-GLOBULINS % 6.2 % (3.2-6.5); GAMMA GLOBULINS 0.64 GM/DL (0.65-1.58)
== END ==
PROVIDERS: ATTEND Internal Medicine
DX: M46.40 Discitis, unspecified, site unspecified (principal)

== ENCOUNTER → 2021-10-26 | Outpatient (CLI) | payer MEDICARE, BC, OTHER ==
[~2021-10-26] MED LIST changes: +PROHANCE 279.3MG/ML 15ML VIAL As Ordered ONE
== END ==
LOC: M RAD 10:43
PROVIDERS: ATTEND Physician Assistant
DX: M46.40 Discitis, unspecified, site unspecified (principal)
CPT/HCPCS: 72158; 74183; A9576

== ENCOUNTER → 2021-10-27 | Outpatient (REF) ==
[~2021-10-27] MED LIST changes: -PROHANCE 279.3MG/ML 15ML VIAL As Ordered ONE
[2021-10-27 16:04] LABS: C REACTIVE PROTEIN QUANTITATIV 0.81 MG/DL (0.00-0.30); CALCIUM LEVEL 10.1 MG/DL (8.8-10.2); CREATININE FOR GFR 0.96 MG/DL (0.55-1.30); GLOMERULAR FILTRATION RATE 58.9 (>32)
== END ==
PROVIDERS: ATTEND Internal Medicine
DX: M46.49 Discitis, unspecified, multiple sites in spine (principal)

== ENCOUNTER → 2021-10-28 | Outpatient (REF) ==
[2021-10-28 13:03] LABS: BASO # 0.1 10^3/uL (0.0-0.2); BASO % 0.4 % (0.0-1.0); EOS # 0.6 10^3/uL (0.0-0.5); HEMATOCRIT 31.1 % (36.0-47.0); HEMOGLOBIN 9.8 g/dl (12.0-15.5); LYMPH # 1.2 10^3/uL (1.5-5.0); MEAN CORPUSCULAR HEMOGLOBIN 31.5 pg (27.0-33.0); MEAN CORPUSCULAR HGB CONC 31.5 g/dl (32.0-36.5); MONO # 1.5 10^3/uL (0.0-0.8); MONO % 12.5 % (2.0-8.0); NEUTROPHILS # 8.6 10^3/uL (1.5-8.5); NEUTROPHILS % 71.3 % (36.0-66.0); PLATELET COUNT, AUTOMATED 447 10^3/uL (150-450); RED BLOOD COUNT 3.11 10^6/uL (4.00-5.40); WHITE BLOOD COUNT 12.1 10^3/uL (4.0-10.0)
[2021-10-28 13:36] LABS: ALT/SGPT 16 U/L (12-78); BILIRUBIN,TOTAL 0.2 MG/DL (0.2-1.0); BLOOD UREA NITROGEN 26 MG/DL (7-18); C REACTIVE PROTEIN QUANTITATIV 0.78 MG/DL (0.00-0.30); CALCIUM LEVEL 11.3 MG/DL (8.8-10.2); CARBON DIOXIDE LEVEL 15 MEQ/L (21-32); CHLORIDE LEVEL 117 MEQ/L (98-107); CREATININE FOR GFR 0.92 MG/DL (0.55-1.30); GLOMERULAR FILTRATION RATE > 60.0 (>32); GLUCOSE, FASTING 87 MG/DL (70-100); POTASSIUM SERUM 4.8 MEQ/L (3.5-5.1); SODIUM LEVEL 143 MEQ/L (136-145); TOTAL PROTEIN 6.4 GM/DL (6.4-8.2)
[2021-10-28 14:44] LABS: ERYTHROCYTE SEDIMENTATION RATE 50 mm/hr (0-30)
== END ==
PROVIDERS: ATTEND Internal Medicine
DX: M46.40 Discitis, unspecified, site unspecified (principal)

== ENCOUNTER → 2021-10-28 | Outpatient (REF) | payer MEDICARE, BC, OTHER | LOC: M LAB REF 13:24 | PROVIDERS: ATTEND Internal Medicine Infectious Disease | DX: K86.89 Other specified diseases of pancreas (principal); D37.8 Neoplasm of uncertain behavior of other specified digestive organs ==

== ENCOUNTER → 2021-11-11 | Outpatient (REF) ==
[2021-11-11 12:38] LABS: BASO % 0.3 % (0.0-1.0); EOS # 0.1 10^3/uL (0.0-0.5); EOS % 0.8 % (0.0-3.0); LYMPH % 7.4 % (24.0-44.0); MEAN CORPUSCULAR HEMOGLOBIN 30.6 pg (27.0-33.0); MEAN CORPUSCULAR HGB CONC 31.3 g/dl (32.0-36.5); MEAN CORPUSCULAR VOLUME 97.9 fl (80.0-96.0); MONO # 0.8 10^3/uL (0.0-0.8); MONO % 5.8 % (2.0-8.0); NEUTROPHILS # 11.2 10^3/uL (1.5-8.5); NEUTROPHILS % 84.6 % (36.0-66.0); PLATELET COUNT, AUTOMATED 444 10^3/uL (150-450); RED BLOOD COUNT 3.27 10^6/uL (4.00-5.40); WHITE BLOOD COUNT 13.3 10^3/uL (4.0-10.0)
[2021-11-11 13:06] LABS: ALBUMIN 3.4 GM/DL (3.2-5.2); BILIRUBIN,TOTAL 0.3 MG/DL (0.2-1.0); C REACTIVE PROTEIN QUANTITATIV 0.78 MG/DL (0.00-0.30); CALCIUM LEVEL 9.6 MG/DL (8.8-10.2); CREATININE FOR GFR 1.32 MG/DL (0.55-1.30); GLOMERULAR FILTRATION RATE 40.8 (>32); TOTAL PROTEIN 6.8 GM/DL (6.4-8.2)
[2021-11-11 13:18] LABS: ERYTHROCYTE SEDIMENTATION RATE 56 mm/hr (0-30)
== END ==
PROVIDERS: ATTEND Physician Assistant
DX: M46.40 Discitis, unspecified, site unspecified (principal)

== ENCOUNTER → 2021-11-18 | Outpatient (REF) | PROVIDERS: ATTEND Physician Assistant | DX: N89.8 Other specified noninflammatory disorders of vagina (principal) ==

== ENCOUNTER → 2021-11-20 | Outpatient (CLI) | payer MEDICARE, BC, OTHER | LOC: M RAD 07:11 | PROVIDERS: ATTEND Physician Assistant | DX: K86.9 Disease of pancreas, unspecified (principal) ==

== ENCOUNTER → 2021-12-09 | Outpatient (REF) | payer BC, MEDICARE, OTHER | PROVIDERS: ATTEND Internal Medicine | DX: M35.3 Polymyalgia rheumatica (principal); Z53.9 Procedure and treatment not carried out, unspecified reason ==

== ENCOUNTER → 2022-06-25 | Outpatient (CLI) | payer MEDICARE, BC, OTHER ==
[2022-06-25 17:13] LABS: HEMATOCRIT 36.9 % (36.0-47.0); HEMOGLOBIN 11.7 g/dl (12.0-15.5); MEAN CORPUSCULAR HEMOGLOBIN 31.4 pg (27.0-33.0); MEAN CORPUSCULAR HGB CONC 31.7 g/dl (32.0-36.5); MEAN CORPUSCULAR VOLUME 98.9 fl (80.0-96.0); PLATELET COUNT, AUTOMATED 457 10^3/uL (150-450); RED BLOOD COUNT 3.73 10^6/uL (4.00-5.40); WHITE BLOOD COUNT 12.4 10^3/uL (4.0-10.0)
[2022-06-25 17:31] LABS: ERYTHROCYTE SEDIMENTATION RATE 71 mm/hr (0-30)
[2022-06-25 17:32] LABS: ALBUMIN 3.7 G/DL (3.2-5.2); BILIRUBIN,TOTAL 0.3 MG/DL (0.3-1.2); CALCIUM LEVEL 9.7 MG/DL (8.3-10.6); CREATININE FOR GFR 1.07 MG/DL (0.55-1.30); GLOMERULAR FILTRATION RATE 51.9 (>32); POTASSIUM SERUM 4.9 MMOL/L (3.5-5.1); TOTAL PROTEIN 6.8 G/DL (5.7-8.2)
[2022-06-25 17:33] LABS: FERRITIN 79.4 NG/ML (7.3-270.7)
== END ==
LOC: M WUC 13:38
PROVIDERS: ATTEND Physician Assistant
DX: I10 Essential (primary) hypertension (principal); M35.3 Polymyalgia rheumatica; D64.9 Anemia, unspecified; C50.919 Malignant neoplasm of unspecified site of unspecified female breast; D69.6 Thrombocytopenia, unspecified

== ENCOUNTER → 2022-07-29 | Outpatient (CLI) | payer MEDICARE, BC, OTHER | LOC: M WUC 15:30 | PROVIDERS: ATTEND Physician Assistant | DX: M35.3 Polymyalgia rheumatica (principal) ==

== ENCOUNTER → 2022-09-17 | Outpatient (CLI) | payer MEDICARE, BC, OTHER ==
[2022-09-17 17:29] LABS: HEMATOCRIT 37.8 % (36.0-47.0); HEMOGLOBIN 11.8 g/dl (12.0-15.5); MEAN CORPUSCULAR HEMOGLOBIN 31.7 pg (27.0-33.0); MEAN CORPUSCULAR HGB CONC 31.2 g/dl (32.0-36.5); MEAN CORPUSCULAR VOLUME 101.6 fl (80.0-96.0); PLATELET COUNT, AUTOMATED 500 10^3/uL (150-450); RED BLOOD COUNT 3.72 10^6/uL (4.00-5.40)
[2022-09-17 18:06] LABS: ALBUMIN 3.3 G/DL (3.2-5.2); BILIRUBIN,TOTAL 0.2 MG/DL (0.3-1.2); CALCIUM LEVEL 9.2 MG/DL (8.3-10.6); CREATININE FOR GFR 0.97 MG/DL (0.55-1.30); GLOMERULAR FILTRATION RATE 58.1 (>32); POTASSIUM SERUM 4.3 MMOL/L (3.5-5.1); THYROID STIMULATING HORMONE 0.883 uIU/ML (0.55-4.78); TOTAL 25(OH) VITAMIN D 60.7 NG/ML (20.0-100.0); TOTAL PROTEIN 6.4 G/DL (5.7-8.2)
[2022-09-17 19:29] LABS: ERYTHROCYTE SEDIMENTATION RATE 65 mm/hr (0-30)
== END ==
LOC: M WUC 14:27
PROVIDERS: ATTEND Physician Assistant
DX: I10 Essential (primary) hypertension (principal); M35.3 Polymyalgia rheumatica; E55.9 Vitamin D deficiency, unspecified; E78.5 Hyperlipidemia, unspecified

== ENCOUNTER → 2022-12-20 | Outpatient (CLI) | payer MEDICARE, BC, OTHER ==
[~2022-12-20] MED LIST changes: -CIPR1.5I IV; +[UNRECOGNIZED DRUG - CODE] IV
[2022-12-20 19:29] LABS: HEMOGLOBIN A1c 5.6 % (4.0-6.0)
== END ==
LOC: M WUC 14:29
PROVIDERS: ATTEND Physician Assistant
DX: R73.01 Impaired fasting glucose (principal)

== ENCOUNTER → 2022-12-24 | Outpatient (CLI) | payer MEDICARE, BC, OTHER ==
[~2022-12-24] MED LIST changes: +LIQUID POLIBAR PLUS 105% w/v 750ML BTL As Ordered ONE
== END ==
LOC: M RAD 10:37
PROVIDERS: ATTEND Physician Assistant Surgical
DX: Z93.3 Colostomy status (principal)

== ENCOUNTER → 2024-07-02 | Outpatient (CLI) | payer MEDICARE, BC, OTHER ==
[~2024-07-02] MED LIST changes: -ASPI-161 PO; +ASPI-615 PO; -LIQUID POLIBAR PLUS 105% w/v 750ML BTL As Ordered ONE; -MELA1TAB9 PO; +MELA5TAB58 PO; +NYST1POW3 TOP; -NYST1POW9 TOP; -SALI0.6530; +SODI88SP
[2024-07-02 16:41] LABS: HEMATOCRIT 40.9 % (36.0-47.0); HEMOGLOBIN 13.4 g/dl (12.0-15.5); MEAN CORPUSCULAR HEMOGLOBIN 33.7 pg (27.0-33.0); MEAN CORPUSCULAR HGB CONC 32.8 g/dl (32.0-36.5); MEAN CORPUSCULAR VOLUME 102.8 fl (80.0-96.0); PLATELET COUNT, AUTOMATED 351 10^3/uL (150-450); RED BLOOD COUNT 3.98 10^6/uL (4.00-5.40)
[2024-07-02 17:11] LABS: ERYTHROCYTE SEDIMENTATION RATE 47 mm/hr (0-30)
[2024-07-02 17:15] LABS: IRON (FE) 111 UG/DL (50-170)
[2024-07-02 17:16] LABS: ALKALINE PHOSPHATASE 87 U/L (35-104); ALT/SGPT 16 U/L (7.0-40); AST/SGOT 19 U/L (<34); BILIRUBIN,TOTAL 0.5 MG/DL (0.3-1.2); BLOOD UREA NITROGEN 32 MG/DL (9-23); C REACTIVE PROTEIN QUANTITATIV < 0.50 MG/DL (<1.0); CALCIUM LEVEL 10.3 MG/DL (8.3-10.6); CARBON DIOXIDE LEVEL 25 MMOL/L (20-31); CHLORIDE LEVEL 107 MMOL/L (98-107); CREATININE FOR GFR 1.08 MG/DL (0.55-1.30); GLOMERULAR FILTRATION RATE 51.1 (>32); GLUCOSE, FASTING 88 MG/DL (74-106); POTASSIUM SERUM 4.4 MMOL/L (3.5-5.1); SODIUM LEVEL 143 MMOL/L (136-145); TOTAL PROTEIN 7.4 G/DL (5.7-8.2)
[2024-07-02 17:17] LABS: FERRITIN 88.9 NG/ML (7.3-270.7); TOTAL 25(OH) VITAMIN D 69.2 NG/ML (20.0-100.0)
[2024-07-02 17:18] LABS: FOLATE > 24.0 NG/ML (>5.4)
[2024-07-02 17:19] LABS: VITAMIN B12 LEVEL 861 PG/ML (211-911)
[2024-07-03 07:08] LABS: WHITE BLOOD COUNT 10.3 10^3/uL (4.0-10.0)
== END ==
LOC: M WUC 10:03
PROVIDERS: ATTEND Physician Assistant
DX: I10 Essential (primary) hypertension (principal); E78.5 Hyperlipidemia, unspecified; M35.3 Polymyalgia rheumatica; D50.9 Iron deficiency anemia, unspecified

== ENCOUNTER → 2024-10-18 | Outpatient (CLI) | payer MEDICARE, BC, OTHER ==
[~2024-10-18] MED LIST changes: +DICL-442 PO; -DICL100T89 PO
== END ==
LOC: M WUC 13:33
PROVIDERS: ATTEND Physician Assistant
DX: M19.012 Primary osteoarthritis, left shoulder (principal)

== ENCOUNTER → 2025-01-17 | Outpatient (CLI) | payer MEDICARE, BC, OTHER ==
[2025-01-17 13:37] LABS: PLATELET COUNT, AUTOMATED 356 10^3/uL (150-450)
[2025-01-17 13:42] LABS: C REACTIVE PROTEIN QUANTITATIV 1.06 MG/DL (<1.0)
[2025-01-17 13:43] LABS: IRON (FE) 82 UG/DL (50-170)
[2025-01-17 13:44] LABS: ALT/SGPT 13 U/L (7.0-40); AST/SGOT 19 U/L (<34); CALCIUM LEVEL 9.5 MG/DL (8.3-10.6); CARBON DIOXIDE LEVEL 27 MMOL/L (20-31); CHLORIDE LEVEL 107 MMOL/L (98-107); CHOLESTEROL LEVEL 189 MG/DL (<200); CHOLESTEROL RISK RATIO 2.31 (<5); CREATININE FOR GFR 1.05 MG/DL (0.55-1.30); GLOMERULAR FILTRATION RATE 51.4 (>32); LDL CHOLESTEROL 85.6 MG/DL (<100); NON-HDL-C 107.2 MG/DL; POTASSIUM SERUM 4.5 MMOL/L (3.5-5.1); SODIUM LEVEL 145 MMOL/L (136-145); TRIGLYCERIDES LEVEL 108 MG/DL (<150)
[2025-01-17 13:45] LABS: VITAMIN B12 LEVEL 962 PG/ML (211-911)
[2025-01-17 13:48] LABS: ERYTHROCYTE SEDIMENTATION RATE 46 mm/hr (0-30)
== END ==
LOC: M WUC 09:21
PROVIDERS: ATTEND Physician Assistant
DX: I10 Essential (primary) hypertension (principal); E78.5 Hyperlipidemia, unspecified; M35.3 Polymyalgia rheumatica; D50.9 Iron deficiency anemia, unspecified; D51.8 Other vitamin B12 deficiency anemias